=== PATIENT | female | born 1995 ===

== ENCOUNTER → 2018-08-11 20:49 | Outpatient (REF) | payer OTHER, SELFPAY ==
[2018-08-11 21:40] LABS: Add Manual Diff / Slide Review NO; Basophils Absolute Auto 0 /uL (0-100); Basophils Percent Auto 0.4 % (0-2); Eosinophils Absolute Auto 100 /uL (0-450); Hematocrit 37.9 % (36-46); Lymphocytes Absolute Auto 3500 /uL (1100-4500); Lymphocytes Percent Auto 30.6 % (25-40); Mean Corpuscular HGB Conc 31.7 % (30-36); Mean Corpuscular Hemoglobin 24.4 PG (26-34); Mean Corpuscular Volume 76.9 fL (80-100); Monocytes Absolute Auto 700 /uL (0-900); Neutrophils Absolute Auto 7100 /uL (1500-7000); Platelet Count 423 X10^3/uL (150-400); Red Blood Cell Count 4.93 X10^6/uL (4.0-5.2); Red Cell Distribution Width 17.4 % (11.6-14.8); White Blood Cell Count 11.5 X10^3/uL (4.5-11.0)
[2018-08-14 13:48] LABS: EBV Virus IgM Ab < 36.00 U/mL (< 36.00); EVB Early IgG < 9.00 U/mL (< 9.00)
== END ==
LOC: LAB 20:49
PROVIDERS: Visit Provider Physician Assistant
DX: J02.9 Acute pharyngitis, unspecified (principal); Z13.89 Encounter for screening for other disorder
CPT/HCPCS: 36415; 85025; 86663; 86664; 86665

== ENCOUNTER → 2018-08-20 23:19 | Outpatient (REF) | payer OTHER, SELFPAY | LOC: LAB 23:19 | PROVIDERS: Visit Provider Physician Assistant | DX: J03.90 Acute tonsillitis, unspecified (principal) | CPT/HCPCS: 87070; 87077; 87147 ==